=== PATIENT | female | born 1985 | race Caucasian/White ===

== ENCOUNTER 2017-01-29 21:17 | Emergency (ER) | payer OTHER ==
--- NOTE | 2017-01-29 22:07 | Emergency Department Record ---
History of Present Illness - General Chief complaint: Lower Extremity Pain Stated complaint: SWELLING AND PAIN IN L ANKLE Time Seen by Provider: 01/29/17 21:42 Source: Patient Mode of Arrival: Wheelchair Limitations: No limitations - History of Present Illness Initial comments: 31 yo female presents to ED with a 6-7 week history of conjunctivitis and and intermittent lower extremity swelling and pain. Patient reports fever several weeks ago. Patient has been seen and treated for "pink eye" and is currently being evaluated for auto-immune diseases. Patient reports that she has been taking prednisone intermittently that improves her symptoms however they return soon after. Patient denies health problems at her baseline. MD Complaint: Extremity pain, Extremity swelling Onset/Timin -: Week(s) Location: Left, Ankle, Foot History of Same: Yes Severity scale (1-10): 8 Quality: Dull, Sharp, Stabbing Consistency: Constant Improves with: Rest Worsens with: Palpation, Walking, Weight bearing Associated Symptoms: Rash - Related Data Home Medications Medication Instructions Recorded Confirmed Last Taken Etonogestrel/Ethinyl Estradiol 1 vagring VG QMONTH vagring 12/23/16 01/29/17 Unknown [Nuvaring Vaginal Ring] Ibuprofen [Motrin] 600 mg PO TID PRN tab 12/23/16 01/29/17 Unknown Prednisone [Prednisone 20Mg] 60 mg PO DAILY 01/29/17 01/29/17 01/29/17 Previous Rx's Medication Instructions Recorded Doxycycline Hyclate [Doxycycline] 100 mg PO BID #27 cap 01/29/17 Hydrocodone/Acetaminophen [Hye 1 tab PO Q6H PRN #10 tab 01/29/17 5mg/325mg] Prednisone [Prednisone 20Mg] 20 mg PO TID #18 tab 01/29/17 Allergies Allergy/AdvReac Type Severity Reaction Status Date / Time No Known Drug Allergies Allergy Verified 01/29/17 21:37 Travel Screening - Travel/Exposure Within Last 30 Days Have you traveled within the last 30 days?: No - Travel Symptoms Symptom Screening: None Review of Systems Constitutional: Reports: Fever. Denies: Chills, Malaise, Night sweats Eyes: Reports: Photophobia. Denies: Eye discharge ENT: Denies: Congestion, Ear pain, Epistaxis Respiratory: Denies: Cough, Dyspnea Cardiovascular: Denies: Chest pain, Dyspnea on exertion Endocrine: Denies: Fatigue, Heat or cold intolerance Gastrointestinal: Denies: Abdominal pain, Nausea, Vomiting Genitourinary: Denies: Incontinence, Retention Musculoskeletal: Reports: Arthralgia, Joint swelling. Denies: Back pain, Gout Skin: Reports: Rash. Denies: Bruising, Change in color Neurological: Denies: Confusion, Headache, Seizure, Tingling Psychiatric: Denies: Anxiety Hematological/Lymphatic: Denies: Anemia, Blood Clots Past Medical History - SOCIAL HISTORY Smoking Status: Current every day smoker - RESPIRATORY Hx Respiratory Disorders: No - CARDIOVASCULAR Hx Cardio Disorders: No - NEURO Hx Neuro Disorders: No - GI Hx GI Disorders: No - Hx Genitourinary Disorders: Yes Comment:: endometriosis - ENDOCRINE Hx Endocrine Disorders: No - MUSCULOSKELETAL Hx Musculoskeletal Disorders: No - PSYCH Hx Psych Problems: No - HEMATOLOGY/ONCOLOGY Hx Hematology/Oncology Disorders: No Family Medical History Any Significant Family History?: Yes Family Hx Comment (NOT TO BE USED IN PLACE OF ITEMS BELOW): mom w/osteoporis Physical Exam - General General Appearance: Alert, Oriented x3, Cooperative, Mild distress Limitations: No limitations - Head Head exam: Atraumatic, Normocephalic, Normal inspection Head exam detail: negative: Abrasion, Contusion, Santana's sign, General tenderness, Hematoma, Laceration - Eye Eye exam: Conjunctival injection. negative: Periorbital swelling, Periorbital tenderness, Scleral icterus - ENT Ear exam: negative: Auricular hematoma, Auricular trauma Nasal Exam: negative: Active bleeding, Discharge, Dried blood, Foreign body - Neck Neck exam: Normal inspection. negative: Meningismus, Tenderness - Respiratory Respiratory exam: Normal lung sounds bilaterally. negative: Rales, Respiratory distress, Rhonchi, Stridor - Cardiovascular Cardiovascular Exam: Normal rhythm, Normal heart sounds, Tachycardia - GI/Abdominal GI/Abdominal exam: Soft. negative: Rebound, Rigid, Tenderness - Rectal Rectal exam: Deferred - exam: Deferred - Extremities Extremities exam: Tenderness, Other (TTP and edema over the left ankle>right ankle, pain with dorsiflexion/plantar flexion, however there is no evidence for septic joint on examination (no erythema, no warmth on examination).). negative : Calf tenderness, Pedal edema - Back Back exam: Denies: CVA tenderness (R), CVA tenderness (L) - Neurological Neurological exam: Alert, Oriented X3 - Psychiatric Psychiatric exam: Normal affect, Normal mood - Skin Skin exam: Normal color. negative: Abrasion Type of lesion: negative: abrasion Course Vital Signs 01/29/17 21:25 Temperature 98.7 F Pulse Rate 114 H Respiratory 16 Rate Blood Pressure 122/87 Pulse Ox 98 - Reevaluation(s) Reevaluation #1: 01/29/17 23:09 Labs reviewed, WBC 13.4, UA demonstrates 1+ Bacteria, 3-5 WBCs, 3-6 RBCs. ESR 5 , CRP 4.2. Patient updated on all results. 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 Following our discussion, will treat with Doxycycline for 14 days with instructions to return for any worsening of her urinary symptoms as the antibiotiogram does not indicate coverage for Doxycycline. Patient agrees with plan as discussed, and appears stable for discharge at this time. Medical Decision Making - Lab Data Result diagrams: 01/29/17 22:22 01/29/17 22:22 Disposition Disposition: Discharge Clinical Impression: Reactive arthritis Disposition: Home, Self-Care Condition: (2) Stable Additional Instructions: Return to ED if your symptoms worsen or if you have any concerns. Follow-up with your doctor in 3-5 days as directed. Doxycycline, Prednisone, and Hye as directed. Prescriptions: Doxycycline Hyclate [Doxycycline] 100 mg PO BID #27 cap Hydrocodone/Acetaminophen [Hye 5mg/325mg] 1 tab PO Q6H PRN #10 tab PRN Reason: Pain - General Prednisone [Prednisone 20Mg] 20 mg PO TID #18 tab Forms: Patient Portal Access Time of Disposition: 23:14
[2017-01-29 22:19] LABS: URINE APPEARANCE CLEAR; URINE BILIRUBIN NEGATIVE (NEGATIVE); URINE BLOOD MODERATE (NEGATIVE); URINE COLOR YELLOW; URINE GLUCOSE (UA) NEGATIVE (NEGATIVE); URINE KETONE NEGATIVE (NEGATIVE); URINE LEUKOCYTE ESTERASE NEGATIVE (NEGATIVE); URINE NITRITE NEGATIVE (NEGATIVE); URINE PROTEIN NEGATIVE (NEGATIVE); URINE UROBILINOGEN 0.2 E.U./dL (0.20 - 1.00)
[2017-01-29 22:28] LABS: BASO % 0.1 % (0-6); EOS % 0.4 % (0-6); HEMATOCRIT 39.9 % (35.0-47.0); HEMOGLOBIN 13.2 gm/dl (11.6-16.0); LYMPH % 2.7 % (16-45); MEAN CELL VOLUME 93.2 fl (81-97); MEAN CORPUSCULAR HEMOGLOBIN 30.8 pg (27-33); MEAN CORPUSCULAR HGB CONC 33.1 g/dl (32-36); MEAN PLATELET VOLUME 9.4 fl (7.4-10.4); MONO % 2.2 % (0-9); PLATELET COUNT 178 K/uL (130-400); RED BLOOD COUNT 4.28 M/uL (3.80-5.40); RED CELL DISTRIBUTION WIDTH 13.1 % (11.5-14.5); WHITE BLOOD COUNT W/O DIFF 13.4 K/uL (4.2-12.2)
[2017-01-29 22:43] LABS: URINE BACTERIA 1+; URINE EPITHELIAL CELLS 0 - 2 (FEW)
[2017-01-29 22:43] LABS: ALB/GLOB RATIO 1.4 (1.1-1.8); ALBUMIN 4.1 gm/dL (3.5-5.0); ALKALINE PHOSPHATASE 101 U/L (38-126); ALT/SGPT 24 U/L (9-52); ANION GAP 5.8 (7-16); AST/SGOT 18 U/L (14-36); BILIRUBIN,TOTAL 0.41 mg/dL (0.2-1.3); BLOOD UREA NITROGEN 21 mg/dL (7-17); C-REACTIVE PROTEIN 4.2 mg/dL (0.0-0.9); CARBON DIOXIDE 22.2 mmol/L (22-30); CREATININE 0.9 mg/dL (0.52-1.04); EST GLOMERULAR FILTRATION RATE > 60 ml/min; GLUCOSE,RANDOM 104 mg/dL (70-110); TOTAL PROTEIN 7.1 gm/dL (6.3-8.2)
[2017-01-29 23:08] LABS: ERYTHROCYTE SEDIMENTATION RATE 5 mm/hr (0-20)
== END 2017-01-29 23:36 | disposition home or self-care (01) ==
LOC: ER 21:17
DX: M02.372 Reiter's disease, left ankle and foot (principal); M02.371 Reiter's disease, right ankle and foot; R82.90 Unspecified abnormal findings in urine; H10.9 Unspecified conjunctivitis
CPT/HCPCS: 80053; 81001; 85027; 85651; 86140; 99283

== ENCOUNTER 2017-06-02 17:54 | Emergency (ER) | payer OTHER ==
--- NOTE | 2017-06-02 19:08 | Emergency Department Record ---
History of Present Illness - General Chief complaint: Rash Stated complaint: RASH ON LEGS,RT LOWER LEG SWELLING/PAIN Time Seen by Provider: 06/02/17 19:02 Source: Patient Mode of Arrival: Ambulatory Limitations: No limitations - History of Present Illness Initial comments: 31 yo female presents to ED with a CC of worsening right anterior lower extremity pain. Patient reports that she had been previously diagnosed with erythema nodosum, was doing well on Prednisone, Plaquinel, and Colchicine however reports that her Colchicine was topped several weeks ago and her symptoms have begun to re-emerge. Patient reports that she has been attempting to reach her senior procurement specialist who is out of town currently, but has not been able to reach them. Patient denies injury to the area, denies fevers, chills, or history of DVT. MD complaint: Lesion -: Days(s) Location: RLE Severity: Moderate Quality: Aching Consistency: Constant Improves with: None Worsens with: None Associated symptoms: Denies other symptoms Treatments Prior to Arrival: NSAID - Related Data Home Medications Medication Instructions Recorded Confirmed Last Taken Hydroxychloroquine Sulfate 200 mg PO DAILY 06/02/17 06/02/17 Unknown [Plaquenil] Previous Rx's Medication Instructions Recorded Colchicine 0.6 mg PO DAILY #30 capsule 06/02/17 Prednisone [Prednisone 10Mg] 10 mg PO DAILY #30 tab 06/02/17 Allergies Allergy/AdvReac Type Severity Reaction Status Date / Time No Known Drug Allergies Allergy Verified 06/02/17 18:55 Review of Systems Constitutional: Denies: Chills, Fever, Malaise, Night sweats Eyes: Denies: Eye discharge, Eye pain ENT: Denies: Congestion, Ear pain, Epistaxis Respiratory: Denies: Cough, Dyspnea Cardiovascular: Denies: Chest pain, Dyspnea on exertion Endocrine: Denies: Fatigue, Heat or cold intolerance Gastrointestinal: Denies: Abdominal pain, Nausea, Vomiting Genitourinary: Denies: Frequency, Hematuria, Incontinence, Retention Musculoskeletal: Reports: Arthralgia. Denies: Back pain, Gout, Joint swelling, Myalgia Skin: Reports: Bruising. Denies: Change in color, Change in hair/nails Neurological: Denies: Abnormal gait, Confusion, Headache, Tingling Psychiatric: Denies: Anxiety Hematological/Lymphatic: Denies: Anemia, Blood Clots Past Medical History - SOCIAL HISTORY Smoking Status: Current every day smoker - RESPIRATORY Hx Respiratory Disorders: No - CARDIOVASCULAR Hx Cardio Disorders: No - NEURO Hx Neuro Disorders: No - GI Hx GI Disorders: No - Hx Genitourinary Disorders: Yes Comment:: endometriosis - ENDOCRINE Hx Endocrine Disorders: No - MUSCULOSKELETAL Hx Musculoskeletal Disorders: No - PSYCH Hx Psych Problems: No - HEMATOLOGY/ONCOLOGY Hx Hematology/Oncology Disorders: No Family Medical History Family Hx Comment (NOT TO BE USED IN PLACE OF ITEMS BELOW): mom w/osteoporis Physical Exam - General General Appearance: Alert, Oriented x3, Cooperative, Mild distress Limitations: No limitations - Head Head exam: Atraumatic, Normocephalic, Normal inspection Head exam detail: negative: Abrasion, Contusion, Santana's sign, General tenderness, Hematoma, Laceration - Eye Eye exam: Normal appearance. negative: Conjunctival injection, Periorbital swelling, Periorbital tenderness, Scleral icterus - ENT Ear exam: negative: Auricular hematoma, Auricular trauma Nasal Exam: negative: Active bleeding, Discharge, Dried blood, Foreign body Mouth exam: negative: Drooling, Laceration, Muffled voice, Tongue elevation - Neck Neck exam: Normal inspection. negative: Meningismus, Tenderness - Respiratory Respiratory exam: Normal lung sounds bilaterally. negative: Respiratory distress, Rhonchi, Stridor, Wheezes - Cardiovascular Cardiovascular Exam: Regular rate, Normal rhythm, Normal heart sounds - GI/Abdominal GI/Abdominal exam: Soft. negative: Rebound, Rigid, Tenderness - Rectal Rectal exam: Deferred - exam: Deferred - Extremities Extremities exam: Tenderness, Other (Mild TTP to the right anterior lower extremity, mild STS present to affected area measuring approximately 3 cm in diameter. No erythema present, patient reports mild ecchymosis to the left inner thigh region.). negative: Calf tenderness, Pedal edema - Back Back exam: Denies: CVA tenderness (R), CVA tenderness (L) - Neurological Neurological exam: Alert, Normal gait, Oriented X3 - Psychiatric Psychiatric exam: Normal affect, Normal mood - Skin Skin exam: Normal color. negative: Abrasion Type of lesion: negative: abrasion Course - Reevaluation(s) Reevaluation #1: 06/02/17 19:13 Symptoms appear c/w with previous inflammatory reaction that improved with Prednisone and Colchicine. Patient is hesitant to start prednisone as she was weaned from her steroid about 6-8 weeks ago, recommended initial treatment by restarting the colchicine and to start Prednisone if her symptoms fail to improve over the next serval days. Patient agrees with the plan as discussed and appears stable for discharge at this time. Disposition Disposition: Discharge Clinical Impression: Erythema nodosum Disposition: Home, Self-Care Condition: (2) Stable Additional Instructions: Return to ED if your symptoms worsen or if you have any concerns. Prednisone and Colchicine as directed. Follow-up with your senior procurement specialist later this week. Prescriptions: Colchicine 0.6 mg PO DAILY #30 capsule Prednisone [Prednisone 10Mg] 10 mg PO DAILY #30 tab Forms: Patient Portal Access Time of Disposition: 19:08 Quality - Quality Measures Quality Measures: N/A - Blood Pressure Screening Does Patient Have Any of the Following: No Blood Pressure Classification: Pre-Hypertensive BP Reading Systolic Measurement: 142 Diastolic Measurement: 89 Screening for High Blood Pressure: < Pre-Hypertensive BP, F/U Documented > [ G8950] Pre-Hypertensive Follow-up Interventions: Referral to alternative/primary care provider.
== END 2017-06-02 19:23 | disposition home or self-care (01) ==
LOC: ER 17:54
DX: L52 Erythema nodosum (principal)
CPT/HCPCS: 99282

== ENCOUNTER 2017-09-22 15:10 | Emergency (ER) | payer BC, OTHER ==
[2017-09-22] MEDS ORDERED: MORPHINE SULFATE 5 MG/ML PFS IM ONE (15:21)
[2017-09-22] MEDS ORDERED: HYDROCODONE/APAP 10/325 TABLET PO ONE (15:24)
--- NOTE | 2017-09-22 15:29 | Emergency Department Record ---
History of Present Illness - General Chief complaint: Extremity Problem Stated complaint: RT LSHOULDER PAIN Time Seen by Provider: 09/22/17 15:12 Source: Patient, Family Mode of Arrival: Ambulatory Limitations: No limitations - History of Present Illness Initial comments: 31 yo female presents with persistent shoulder pain since a dislocation in [place] this Friday. She tossed her phone underhand and the shoulder dislocated. She has had numerous dislocations in the past. She was seen in an ER in [place]. The shoulder was relocated. She has had pain since then. She has not dislocated since 5 years ago. She has pain but she does not think it is dislocated currently. She was not given any pain medication at the time of discharge in [place]. Her prior surgeon was Dr Loki Godfrey in [place]. He is no longer in practice in the area. MD Complaint: Extremity pain, Joint pain Onset/Timin -: Days(s) Location: Right, Shoulder History of Same: Yes Radiation: Proximal, Distal Severity scale (1-10): 9 Quality: Aching Consistency: Constant Improves with: Immobilization Worsens with: Nothing Associated Symptoms: Denies other symptoms - Related Data Previous Rx's Medication Instructions Recorded Hydrocodone/Acetaminophen [Henry 1 each PO Q6H #16 tablet 09/22/17 7.5-325 Tablet] Allergies Allergy/AdvReac Type Severity Reaction Status Date / Time No Known Drug Allergies Allergy Verified 09/22/17 15:21 Travel Screening - Travel/Exposure Within Last 30 Days Have you traveled within the last 30 days?: No Review of Systems Constitutional: Denies: Chills, Fever, Malaise, Weakness Eyes: Denies: Eye discharge ENT: Denies: Congestion, Throat pain Respiratory: Denies: Cough Cardiovascular: Denies: Chest pain, Palpitations, Syncope Endocrine: Denies: Fatigue Gastrointestinal: Denies: Abdominal pain, Diarrhea, Nausea, Vomiting Genitourinary: Denies: Abnormal menses, Dysuria, Urgency Musculoskeletal: Reports: As per HPI, Arthralgia Skin: Denies: Bruising, Change in color, Rash Neurological: Reports: Tingling (index finger since Friday). Denies: Headache Psychiatric: Reports: As per HPI. Denies: Anxiety Hematological/Lymphatic: Reports: As per HPI. Denies: Anemia, Blood Clots, Easy bleeding, Easy bruising, Swollen glands Past Medical History - SOCIAL HISTORY Smoking Status: Current every day smoker - RESPIRATORY Hx Respiratory Disorders: No - CARDIOVASCULAR Hx Cardio Disorders: No - NEURO Hx Neuro Disorders: No - GI Hx GI Disorders: No - Hx Genitourinary Disorders: Yes Comment:: endometriosis - ENDOCRINE Hx Endocrine Disorders: No - MUSCULOSKELETAL Hx Musculoskeletal Disorders: No - PSYCH Hx Psych Problems: No - HEMATOLOGY/ONCOLOGY Hx Hematology/Oncology Disorders: No Family Medical History Family Hx Comment (NOT TO BE USED IN PLACE OF ITEMS BELOW): mom w/osteoporis Physical Exam - General General Appearance: Alert, Oriented x3, Cooperative, No acute distress Limitations: No limitations - Head Head exam: Atraumatic, Normocephalic, Normal inspection - Eye Eye exam: Normal appearance, PERRL. negative: Conjunctival injection, Scleral icterus - ENT ENT exam: Normal exam, Mucous membranes moist Ear exam: Normal external inspection, External canal tenderness Nasal Exam: Normal inspection Mouth exam: Normal external inspection Teeth exam: Normal inspection - Neck Neck exam: Normal inspection, Full ROM. negative: Tenderness - Respiratory Respiratory exam: Normal lung sounds bilaterally. negative: Respiratory distress - Cardiovascular Cardiovascular Exam: Regular rate, Normal rhythm, Normal heart sounds Peripheral Pulses: 2+: Radial (R) - Rectal Rectal exam: Deferred - exam: Deferred - Extremities Extremities exam: Normal inspection, Joint swelling, Normal capillary refill, Tenderness. negative: Calf tenderness, Full ROM Image of Full Body: 1 - tender anterior, no appreciable deformity, field seismologist intact, sensation intact - Neurological Neurological exam: Alert, Normal gait, Oriented X3. negative: Motor sensory deficit - Psychiatric Psychiatric exam: Normal affect, Normal mood - Skin Skin exam: Dry, Intact, Normal color, Warm Course Vital Signs 09/22/17 15:14 Temperature 98.5 F Pulse Rate 91 H Respiratory 18 Rate Blood Pressure 126/87 Pulse Ox 98 - Reevaluation(s) Reevaluation #1: The XR was reviewed No acute process or dislocation The patient was referred to the ortho specialty clinic for follow up Rx provided for pain control. 09/22/17 15:58 Disposition Disposition: Discharge Clinical Impression: Shoulder dislocation Qualifiers: Encounter type: initial encounter Laterality: right Qualified Code(s): S43.004A - Unspecified dislocation of right shoulder joint, initial encounter Disposition: Home, Self-Care Condition: (1) Good Instructions: Shoulder Dislocation (ED) Additional Instructions: Ice and avoid use You have been referred to the orthopedic specialty clinic at [facility] Prescriptions: Hydrocodone/Acetaminophen [Henry 7.5-325 Tablet] 1 each PO Q6H #16 tablet Referrals: NORMA VELÁSQUEZ [DOCTOR OF OSTEOPATH] - DEON GAITAN [Primary Care Provider] - [facility] [Provider Group] Forms: Patient Portal Access Time of Disposition: 15:30 Quality - Quality Measures Quality Measures: N/A - Blood Pressure Screening Does Patient Have Any of the Following: No Blood Pressure Classification: Pre-Hypertensive BP Reading Systolic Measurement: 126 Diastolic Measurement: 87 Screening for High Blood Pressure: < Pre-Hypertensive BP, F/U Documented > [ G8950] Pre-Hypertensive Follow-up Interventions: Referral to alternative/primary care provider.
--- NOTE | 2017-09-23 07:54 | RADIOLOGY REPORT ---
EXAM: RIGHT SHOULDER HISTORY: PAIN AFTER RECENT DISLOCATION. TECHNIQUE: Three views of the right shoulder are provided along with the comparison study dated 05/28/10. FINDINGS: There is no radiographic evidence of a fracture or a dislocation of the right shoulder. No significant soft tissue abnormalities are visualized. Alignment of the glenohumeral articulation is anatomic. Incidental note is made of a 2.8 mm osseous density in the region of the right glenoid process. I suspect this likely represents a small bone island and appears unchanged with respect to the prior x-ray. IMPRESSION: NO RADIOGRAPHIC EVIDENCE OF AN ACUTE PROCESS INVOLVING THE RIGHT SHOULDER. IF THERE IS FURTHER CLINICAL CONCERN THEN MRI OF THE RIGHT SHOULDER CAN BE OBTAINED FOR FURTHER EVALUATION. JOB NUMBER: [id number] [facility]
== END 2017-09-22 16:09 | disposition home or self-care (01) ==
LOC: ER 15:10
DX: M24.411 Recurrent dislocation, right shoulder (principal)
CPT/HCPCS: 99283; 99284; 73030; J3490